=== PATIENT | male | born 1940 | race Caucasian/White ===

== ENCOUNTER 2022-09-09 11:34 | Outpatient (CLI) | payer MEDICARE | END 2022-09-09 11:35 | disposition home or self-care (01) | LOC: MADLAB 11:34 | PROVIDERS: ATTEND Internal Medicine | DX: J45.50 Severe persistent asthma, uncomplicated (principal); J98.4 Other disorders of lung | CPT/HCPCS: 71046 ==

== ENCOUNTER 2023-07-13 10:41 | Emergency (ER) | payer MEDICARE ==
[2023-07-13 11:32] LABS: ALT (SGPT) 24 U/L (8-55); AST (SGOT) 37 U/L (5-34); Albumin 3.7 g/dL (3.4-4.8); Alkaline Phosphatase 169 U/L (40-110); Anion Gap 13 mmol/L (10-20); BUN (Urea Nitrogen) 12 mg/dL (8.4-25.7); Bilirubin, Total 0.7 mg/dL (0.2-1.2); Calc. Creatinine Clearance 0 mL/min (70-130); Calcium 8.9 mg/dL (7.8-10.44); Carbon Dioxide 23 mmol/L (23-31); Chloride 105 mmol/L (98-107); Estimated GFR 64; Globulin 3.6 g/dL (2.4-3.5); Glucose 109 mg/dL (83-110); Potassium 4.5 mmol/L (3.5-5.1); Protein, Total 7.3 g/dL (5.8-8.1); Sodium 136 mmol/L (136-145)
[2023-07-13 11:33] LABS: #Basophils 0.1 thou/uL (0.0-0.2); #Eosinphils 0.3 thou/uL (0.0-0.7); #Lymphocytes 1.4 thou/uL (1.20-3.40); #Monocytes 0.8 thou/uL (0.11-0.59); #Neutrophils 5.4 thou/uL (1.40-6.50); %Basophils 1.2 % (0.0-1.0); %Eosinophils 3.3 % (0.0-10.0); %Lymphocytes 17.7 % (21.0-51.0); %Monocytes 10.4 % (0.0-10.0); %Neutrophils 67.3 % (42.0-75.0); Hematocrit 38.7 % (42.0-52.0); Hemoglobin 11.6 g/dL (14.0-18.0); Mean Corpuscular HGB CONC 29.9 g/dL (32.0-36.0); Mean Corpuscular Hemoglobin 23.5 pg (27.0-31.0); Mean Corpuscular Volume 78.6 fl (78.0-98.0); Mean Platelet Volume 10.3 fL (7.4-10.4); Platelet Count 260 10x3/uL (130-400); RBC Distribution Width 17.2 % (11.5-14.5); Red Blood Cell (RBC) Count 4.93 mill/uL (4.70-6.10)
[2023-07-13 11:36] LABS: Troponin I Less than 0.010 ng/mL (< 0.028)
[2023-07-13] MEDS ORDERED: Boostrix 0.5 ML (Tdap) VIAL (>/=7 yrs of age) ONE (12:22)
== END 2023-07-13 12:47 | disposition home or self-care (01) ==
LOC: MADERS 10:41
DX: S09.90XA Unspecified injury of head, initial encounter (principal); I51.7 Cardiomegaly; D64.9 Anemia, unspecified; F03.90 Unspecified dementia, unspecified severity, without behavioral disturbance, psychotic disturbance, mood disturbance, and anxiety; K21.9 Gastro-esophageal reflux disease without esophagitis; I10 Essential (primary) hypertension; E78.5 Hyperlipidemia, unspecified; Z23 Encounter for immunization; Z79.899 Other long term (current) drug therapy; W18.30XA Fall on same level, unspecified, initial encounter
CPT/HCPCS: 36415; 70450; 71045; 72125; 80053; 84443; 84484; 85025; 90471; 90715; 93005

== ENCOUNTER 2023-07-21 15:23 | Inpatient (IN) | payer MEDICARE ==
[2023-07-21] MEDS ORDERED: FLU VACC QS2023(65UP)/MF59C/PF 60 MCG/0.5 ML SYRINGE IM ONE (15:45)
[2023-07-21 15:53] VITALS: BMI 26.2
[2023-07-21] MEDS ORDERED: Acetaminophen 325 MG TAB PO PRN (16:56)
[2023-07-21] MEDS: Rivastigmine 1.5 MG CAP PO SCH (20:18)
[2023-07-21] MEDS: Metoprolol Tartrate 25 MG TAB PO SCH (20:18)
[2023-07-21] MEDS: Melatonin 3 MG TAB PO PRN (21:24)
[2023-07-22] MEDS: Memantine 10 MG TAB PO SCH ×2 (08:10→20:08)
[2023-07-22] MEDS: Folic Acid 1 MG TAB PO SCH (08:10)
[2023-07-22] MEDS: Metoprolol Tartrate 25 MG TAB PO SCH ×2 (08:10→20:08)
[2023-07-22] MEDS: Clopidogrel Bisulfate 75 MG TAB PO SCH (08:10)
[2023-07-22] MEDS: Rivastigmine 1.5 MG CAP PO SCH ×2 (08:10→20:07)
[2023-07-22] MEDS: Atorvastatin Calcium 10 MG TAB PO SCH (08:10)
[2023-07-22] MEDS: CO Q-10 CAPSULE 100 MG PO SCH (08:11)
[2023-07-22] MEDS: Aspirin Chewable 81 MG TAB PO SCH (08:11)
[2023-07-23] MEDS: Aspirin Chewable 81 MG TAB PO SCH (08:41)
[2023-07-23] MEDS: Atorvastatin Calcium 10 MG TAB PO SCH (08:43)
[2023-07-23] MEDS: Memantine 10 MG TAB PO SCH ×2 (08:43→20:29)
[2023-07-23] MEDS: Metoprolol Tartrate 25 MG TAB PO SCH ×2 (08:43→20:29)
[2023-07-23] MEDS: CO Q-10 CAPSULE 100 MG PO SCH (08:43)
[2023-07-23] MEDS: Clopidogrel Bisulfate 75 MG TAB PO SCH (08:43)
[2023-07-23] MEDS: Rivastigmine 1.5 MG CAP PO SCH ×2 (08:43→20:29)
[2023-07-23] MEDS: Folic Acid 1 MG TAB PO SCH (08:43)
[2023-07-23] MEDS ORDERED: Benzonatate 100 MG CAP PO PRN (12:22)
[2023-07-23] MEDS: Melatonin 3 MG TAB PO PRN (20:29)
[2023-07-23] MEDS: guaiFENesin/DM ER PO SCH (20:29)
[2023-07-24] MEDS: CO Q-10 CAPSULE 100 MG PO SCH (08:28)
[2023-07-24] MEDS: Metoprolol Tartrate 25 MG TAB PO SCH ×2 (08:28→20:36)
[2023-07-24] MEDS: guaiFENesin/DM ER PO SCH ×2 (08:28→20:36)
[2023-07-24] MEDS: Rivastigmine 1.5 MG CAP PO SCH ×2 (08:28→20:35)
[2023-07-24] MEDS: Memantine 10 MG TAB PO SCH ×2 (08:28→20:35)
[2023-07-24] MEDS: Folic Acid 1 MG TAB PO SCH (08:28)
[2023-07-24] MEDS: Clopidogrel Bisulfate 75 MG TAB PO SCH (08:28)
[2023-07-24] MEDS: Aspirin Chewable 81 MG TAB PO SCH (08:29)
[2023-07-24] MEDS: Atorvastatin Calcium 10 MG TAB PO SCH (20:36)
[2023-07-25] MEDS: CO Q-10 CAPSULE 100 MG PO SCH (08:33)
[2023-07-25] MEDS: Aspirin Chewable 81 MG TAB PO SCH (08:33)
[2023-07-25] MEDS: Memantine 10 MG TAB PO SCH ×2 (08:34→20:03)
[2023-07-25] MEDS: Metoprolol Tartrate 25 MG TAB PO SCH ×2 (08:34→20:02)
[2023-07-25] MEDS: Clopidogrel Bisulfate 75 MG TAB PO SCH (08:34)
[2023-07-25] MEDS: guaiFENesin/DM ER PO SCH ×2 (08:34→20:01)
[2023-07-25] MEDS: Folic Acid 1 MG TAB PO SCH (08:34)
[2023-07-25] MEDS: Rivastigmine 1.5 MG CAP PO SCH ×2 (11:28→20:01)
[2023-07-25] MEDS ORDERED: Rivastigmine 1.5 MG CAP PO SCH (11:30)
[2023-07-25] MEDS: Atorvastatin Calcium 10 MG TAB PO SCH (20:02)
[2023-07-26] MEDS: Rivastigmine 1.5 MG CAP PO SCH ×2 (08:32→20:19)
[2023-07-26] MEDS: CO Q-10 CAPSULE 100 MG PO SCH (08:32)
[2023-07-26] MEDS: Aspirin Chewable 81 MG TAB PO SCH (08:32)
[2023-07-26] MEDS: guaiFENesin/DM ER PO SCH ×2 (08:32→20:20)
[2023-07-26] MEDS: Metoprolol Tartrate 25 MG TAB PO SCH ×2 (08:32→20:20)
[2023-07-26] MEDS: Clopidogrel Bisulfate 75 MG TAB PO SCH (08:32)
[2023-07-26] MEDS: Memantine 10 MG TAB PO SCH ×2 (08:32→20:20)
[2023-07-26] MEDS: Folic Acid 1 MG TAB PO SCH (08:32)
[2023-07-26] MEDS: Atorvastatin Calcium 10 MG TAB PO SCH (20:20)
[2023-07-27] MEDS: Rivastigmine 1.5 MG CAP PO SCH ×2 (09:44→20:52)
[2023-07-27] MEDS: Clopidogrel Bisulfate 75 MG TAB PO SCH (09:44)
[2023-07-27] MEDS: Aspirin Chewable 81 MG TAB PO SCH (09:44)
[2023-07-27] MEDS: Memantine 10 MG TAB PO SCH ×2 (09:44→20:53)
[2023-07-27] MEDS: CO Q-10 CAPSULE 100 MG PO SCH (09:44)
[2023-07-27] MEDS: guaiFENesin/DM ER PO SCH ×2 (09:44→20:53)
[2023-07-27] MEDS: Folic Acid 1 MG TAB PO SCH (09:44)
[2023-07-27] MEDS: Metoprolol Tartrate 25 MG TAB PO SCH ×2 (09:47→20:53)
[2023-07-27] MEDS: Melatonin 3 MG TAB PO PRN (20:53)
[2023-07-27] MEDS: Atorvastatin Calcium 10 MG TAB PO SCH (20:53)
[2023-07-28] MEDS: guaiFENesin/DM ER PO SCH ×2 (08:09→20:18)
[2023-07-28] MEDS: Clopidogrel Bisulfate 75 MG TAB PO SCH (08:09)
[2023-07-28] MEDS: Memantine 10 MG TAB PO SCH ×2 (08:09→20:18)
[2023-07-28] MEDS: CO Q-10 CAPSULE 100 MG PO SCH (08:09)
[2023-07-28] MEDS: Folic Acid 1 MG TAB PO SCH (08:09)
[2023-07-28] MEDS: Rivastigmine 1.5 MG CAP PO SCH ×2 (08:09→20:18)
[2023-07-28] MEDS: Metoprolol Tartrate 25 MG TAB PO SCH ×2 (08:09→20:17)
[2023-07-28] MEDS: Aspirin Chewable 81 MG TAB PO SCH (08:09)
[2023-07-28] MEDS: Polyethylene Glycol 3350 17 GM Packet PO PRN (20:17)
[2023-07-28] MEDS: Atorvastatin Calcium 10 MG TAB PO SCH (20:17)
[2023-07-29 05:33] LABS: #Basophils 0.1 thou/uL (0.0-0.2); #Eosinphils 0.5 thou/uL (0.0-0.7); #Lymphocytes 1.7 thou/uL (1.20-3.40); #Neutrophils 6.8 thou/uL (1.40-6.50); %Basophils 1.1 % (0.0-1.0); %Eosinophils 5.3 % (0.0-10.0); %Lymphocytes 16.9 % (21.0-51.0); %Monocytes 9.6 % (0.0-10.0); %Neutrophils 67.1 % (42.0-75.0); Anisocytosis SLIGHT = 6-15 cells (100X) (0-5/hpf); Burr Cells SLIGHT = 2-5 cells (100X) (0-1/hpf); Hemoglobin 11.2 g/dL (14.0-18.0); MDiff Complete? YES; Mean Corpuscular HGB CONC 30.9 g/dL (32.0-36.0); Mean Corpuscular Hemoglobin 23.7 pg (27.0-31.0); Mean Corpuscular Volume 76.7 fl (78.0-98.0); Mean Platelet Volume 9.7 fL (7.4-10.4); Ovalocytes SLIGHT = 2-5 cells (100X) (0-1/hpf); Platelet Adequacy Comment Appears Adequate; Platelet Count 348 10x3/uL (130-400); RBC Distribution Width 16.7 % (11.5-14.5); White Blood Cell (WBC) Count 10.2 10x3/uL (4.8-10.8)
[2023-07-29 05:35] LABS: ALT (SGPT) 46 U/L (8-55); AST (SGOT) 51 U/L (5-34); Albumin 3.6 g/dL (3.4-4.8); Alkaline Phosphatase 160 U/L (40-110); Anion Gap 13 mmol/L (10-20); BUN (Urea Nitrogen) 14 mg/dL (8.4-25.7); Bilirubin, Total 0.7 mg/dL (0.2-1.2); Calc. Creatinine Clearance 82 mL/min (70-130); Carbon Dioxide 22 mmol/L (23-31); Chloride 104 mmol/L (98-107); Estimated GFR 86; Globulin 3.5 g/dL (2.4-3.5); Glucose 112 mg/dL (83-110); Potassium 4.3 mmol/L (3.5-5.1); Protein, Total 7.1 g/dL (5.8-8.1); Sodium 135 mmol/L (136-145)
[2023-07-29] MEDS: Memantine 10 MG TAB PO SCH ×2 (08:45→20:26)
[2023-07-29] MEDS: Aspirin Chewable 81 MG TAB PO SCH (08:45)
[2023-07-29] MEDS: Folic Acid 1 MG TAB PO SCH (08:45)
[2023-07-29] MEDS: Clopidogrel Bisulfate 75 MG TAB PO SCH (08:45)
[2023-07-29] MEDS: CO Q-10 CAPSULE 100 MG PO SCH (08:45)
[2023-07-29] MEDS: Metoprolol Tartrate 25 MG TAB PO SCH ×2 (08:45→20:26)
[2023-07-29] MEDS: guaiFENesin/DM ER PO SCH ×2 (08:45→20:26)
[2023-07-29] MEDS: Rivastigmine 1.5 MG CAP PO SCH ×2 (08:45→20:26)
[2023-07-29] MEDS: Polyethylene Glycol 3350 17 GM Packet PO PRN ×2 (08:58→20:26)
[2023-07-29] MEDS: Atorvastatin Calcium 10 MG TAB PO SCH (20:26)
[2023-07-30 08:38] VITALS: BP 137/79; TEMP 98.4
[2023-07-30] MEDS: Folic Acid 1 MG TAB PO SCH (09:39)
[2023-07-30] MEDS: Memantine 10 MG TAB PO SCH (09:39)
[2023-07-30] MEDS: CO Q-10 CAPSULE 100 MG PO SCH (09:39)
[2023-07-30] MEDS: Aspirin Chewable 81 MG TAB PO SCH (09:39)
[2023-07-30] MEDS: Metoprolol Tartrate 25 MG TAB PO SCH (09:39)
[2023-07-30] MEDS: Clopidogrel Bisulfate 75 MG TAB PO SCH (09:39)
[2023-07-30] MEDS: guaiFENesin/DM ER PO SCH (09:39)
[2023-07-30] MEDS: Rivastigmine 1.5 MG CAP PO SCH (09:39)
== END 2023-07-30 10:30 | disposition home or self-care (01) | DRG 948 ==
LOC: MADMS 15:23
PROVIDERS: ADMIT Family Medicine; ATTEND Family Medicine
DX: R53.81 Other malaise (principal); R65.10 Systemic inflammatory response syndrome (SIRS) of non-infectious origin without acute organ dysfunction; E87.20 Acidosis, unspecified; R53.1 Weakness; I73.9 Peripheral vascular disease, unspecified; K21.9 Gastro-esophageal reflux disease without esophagitis; I10 Essential (primary) hypertension; E78.5 Hyperlipidemia, unspecified; F03.90 Unspecified dementia, unspecified severity, without behavioral disturbance, psychotic disturbance, mood disturbance, and anxiety; J84.10 Pulmonary fibrosis, unspecified; E78.00 Pure hypercholesterolemia, unspecified; Z66 Do not resuscitate; K52.9 Noninfective gastroenteritis and colitis, unspecified; E86.0 Dehydration; D64.9 Anemia, unspecified; Z98.890 Other specified postprocedural states; Z87.891 Personal history of nicotine dependence; Z79.899 Other long term (current) drug therapy; Z79.82 Long term (current) use of aspirin
CPT/HCPCS: 36415; 80053; 85025

== ENCOUNTER 2025-03-02 20:35 | Outpatient (CLI) | payer MEDICARE ==
[2025-03-02 20:57] LABS: #Basophils 0.1 thou/uL (0.0-0.2); #Eosinophils 0.5 thou/uL (0.0-0.7); #Lymphocytes 1.9 thou/uL (1.20-3.40); #Monocytes 0.9 thou/uL (0.11-0.59); #Neutrophils 6.1 thou/uL (1.40-6.50); %Basophils 0.9 % (0.0-1.0); %Eosinophils 5.0 % (0.0-10.0); %Lymphocytes 20.5 % (21.0-51.0); %Monocytes 9.8 % (0.0-10.0); %Neutrophils 63.8 % (42.0-75.0); Anion Gap 14 mmol/L (10-20); Anisocytosis SLIGHT = 6-15 cells (100X) (0-5/hpf); BUN (Urea Nitrogen) 10 mg/dL (8.4-25.7); Calc. Creatinine Clearance 0 mL/min (70-130); Calcium 8.6 mg/dL (7.8-10.44); Carbon Dioxide 24 mmol/L (23-31); Chloride 107 mmol/L (98-107); Glucose 159 mg/dL (83-110); Hematocrit 35.0 % (42.0-52.0); Hemoglobin 10.3 g/dL (14.0-18.0); MDiff Complete? YES; Mean Corpuscular Hemoglobin 22.1 pg (27.0-31.0); Mean Corpuscular Volume 74.8 fl (78.0-98.0); Microcytosis SLIGHT = 6-15 cells (100X) (0-5/hpf); Platelet Adequacy Comment Appears Adequate; Platelet Count 295 10x3/uL (130-400); Potassium 4.4 mmol/L (3.5-5.1); Red Blood Cell (RBC) Count 4.68 mill/uL (4.70-6.10); Sodium 141 mmol/L (136-145); White Blood Cell (WBC) Count 9.5 10x3/uL (4.8-10.8)
== END 2025-03-02 20:36 | disposition home or self-care (01) ==
LOC: MADLAB 20:35
PROVIDERS: ATTEND Family Medicine
DX: I25.10 Atherosclerotic heart disease of native coronary artery without angina pectoris (principal); F03.90 Unspecified dementia, unspecified severity, without behavioral disturbance, psychotic disturbance, mood disturbance, and anxiety; M62.59 Muscle wasting and atrophy, not elsewhere classified, multiple sites; G40.89 Other seizures; G47.00 Insomnia, unspecified; J30.9 Allergic rhinitis, unspecified; K59.00 Constipation, unspecified; G40.509 Epileptic seizures related to external causes, not intractable, without status epilepticus; D64.9 Anemia, unspecified; E78.5 Hyperlipidemia, unspecified; I10 Essential (primary) hypertension; I73.9 Peripheral vascular disease, unspecified; K21.9 Gastro-esophageal reflux disease without esophagitis
CPT/HCPCS: 80048; 85025